=== PATIENT | female | born 1975 | race Caucasian/White ===

== ENCOUNTER → 2020-06-10 | Outpatient (CLI) | payer OTHER ==
[2020-06-10 09:32] LABS: HEMOGLOBIN 13.6 gm/dl (12.3-15.3); RED BLOOD COUNT 4.55 M/UL (4.00-5.10); WHITE BLOOD COUNT 5.1 K/UL (4.5-11.0)
[2020-06-10 09:51] LABS: BUN/CREATININE RATIO 32 (0-10)
[2020-06-11 09:12] LABS: PREALBUMIN 30 mg/dL (12-34)
[2020-06-17 17:08] LABS: VITAMIN E(ALPHA TOCOPHEROL) 9.5 mg/L (7.0-25.1); VITAMIN E(GAMMA TOCOPHEROL) 3.7 mg/L (0.5-5.5)
== END ==
LOC: LAB 08:35
PROVIDERS: Physician Assistant Medical
DX: E66.01 Morbid (severe) obesity due to excess calories (principal); Z98.890 Other specified postprocedural states
CPT/HCPCS: 36415; 80053; 80061; 82728; 82746; 83036; 83540; 83735; 83921; 83970; 84100; 84134; 84425; 84443; 84446; 84590; 85027

== ENCOUNTER → 2020-06-16 | Outpatient (CLI) | payer OTHER | LOC: HEART 5 13:53 | DX: G47.33 Obstructive sleep apnea (adult) (pediatric) (principal) | CPT/HCPCS: 94010 ==

== ENCOUNTER → 2021-02-22 | Outpatient (CLI) | payer OTHER | LOC: EXRD 08:30 | DX: M54.42 Lumbago with sciatica, left side (principal); M51.36 Other intervertebral disc degeneration, lumbar region; M51.34 Other intervertebral disc degeneration, thoracic region; M50.30 Other cervical disc degeneration, unspecified cervical region | CPT/HCPCS: 72050; 72070; 72110 ==